=== PATIENT | male | born 1980 | race Caucasian/White ===

== ENCOUNTER 2020-01-16 20:04 | Emergency (ER) | payer BC, SELFPAY ==
[2020-01-16 20:35] VITALS: BP 115/87; PULSE 77; RESP 16; TEMP 36.7; O2SAT 98; BMI 34.9
[2020-01-16 20:50] VITALS: BP 115/87; PULSE 77; RESP 16; TEMP 36.7; O2SAT 98
--- NOTE | 2020-01-16 20:51 | HMH.EDUTC ---
[facility] [place] Disposition Clinical Impression: Exposure to COVID-19 virus Disposition: Home, Self-Care Condition on Discharge: Good Instructions: Preventing the Spread of Coronavirus Discharge Instructions Additional Instructions: You have been tested for COVID19. These test results should be available tomorrow. Please treat yourself as if you are positive and isolate yourself until test results received. Referrals: PCP,No [Primary Care Provider] - Time of Disposition: 20:55 Medical Decision Making - Shashank Inquiry Pt receiving controlled substance: No Vital Signs: 01/16/20 20:35 01/16/20 20:50 Temperature 98.1 F 98.1 F Temperature Source Oral Pulse Rate 77 Pulse Rate [Right Brachial] 77 Respiratory Rate 16 16 Blood Pressure 115/87 Blood Pressure [Right Arm] 115/87 Blood Pressure Mean [Right Arm] 96 Blood Pressure Source [Right Arm] Automatic Cuff Blood Pressure Position [Right Arm] Sitting 02 Sat by Pulse Oximetry 98 Oxygen Delivery Method Room Air Orders (Tests/Meds): ORDERS Category Date Time Status Coronavirus 19 Swab (OUTPT) Routine Lab 01/16/20 20:41 Ordered [facility] [place] HPI - General Stated complaint: Covid test Time Seen by Provider: 01/16/20 20:51 Mode of Arrival: Ambulatory Source of Information: Patient Limitations: No Limitations Description of Symptoms (Recalled from Triage Doc. by RN): PATIENT C/O SORE THROAT AND SINUS ISSUES; WAS EXPOSED TO A POSITIVE COVID AND IS REQUESTING A TEST HEENT Symptoms (Recalled from RN notes): Yes Resp Symptoms (Recalled from RN notes): No Skin Symptoms (Recalled from RN notes): No MS Symptoms (Recalled from RN notes): No Functional Status (Recalled from RN notes): WNL - History of Present Illness Provider Complaint: Patient has been exposed to COVID19. Has sinus congestion and scratchy throat Onset (ago): day(s) (1) Relieving factors: none Exacerbating factors: none Associated symptoms: denies other symptoms Treatments prior to arrival: none - Related Data Allergies Allergy/AdvReac Type Severity Reaction Status Date / Time No Known Allergies Allergy Verified 01/16/20 20:41 - Worker's Comp Is this a Worker's Comp case?: No [facility] History - Hepatitis A Screen Drug use history?: No High risk sexual behaviors?: No History of sexually transmitted infection?: No Currently employed?: No Childcare worker?: No Do you have indoor plumbing?: Yes Do you have electricity?: Yes Attestation statement:: This patient has been screened for Hepatitis A risk factors. I have reviewed the patient's past medical history: Yes - Social History Alcohol Intake: never Occupational Status: other ROS Obtained: Yes All systems reviewed & no additional complaints - Constitutional Constitutional: Denies body ache, Denies chills, Denies fatigue, Denies fever(s), Denies lethargy, Denies malaise - Eyes Eyes: Denies eye discharge - ENT Ears, Nose, Mouth, and Throat: Denies otalgia, Denies nasal congestion, Reports sore throat - Cardiovascular Cardiovascular: Denies chest pain - Respiratory Respiratory: No cough, No dyspnea - Gastrointestinal Gastrointestingal: Denies: loose stools, vomiting Physical Exam - General General appearance: alert, in no apparent distress - Head Head exam: atraumatic, normocephalic - Eye Eye exam: Present: PERRL - ENT ENT exam: Present: normal oropharynx, TM's normal bilaterally - Neck Neck exam: Present: normal inspection - Chest Chest inspection: Present: normal inspection - Respiratory Respiratory exam: Present: normal lung sounds bilaterally - Cardiovascular Cardiovascular exam: Present: regular rate, normal rhythm - Neurological Exam Neurological exam: Present: alert, oriented X3 - Psychiatric Psychiatric exam: Present: normal affect, normal mood - Skin Skin exam: Present: warm, dry
== END 2020-01-16 20:58 | disposition home or self-care (01) ==
PROVIDERS: Emergency Provider Physician Assistant
DX: Z20.828 Contact with and (suspected) exposure to other viral communicable diseases (principal)
CPT/HCPCS: 99201; U0003

== ENCOUNTER 2020-05-28 18:19 | Emergency (ER) | payer BC, SELFPAY ==
[2020-05-28 18:30] VITALS: BP 103/74; PULSE 112; RESP 20; TEMP 38.6; O2SAT 96; BMI 34.9
--- NOTE | 2020-05-28 18:45 | HMH.EDUTC ---
[facility] [place] Clinical Impression: Viral syndrome, Exposure to COVID-19 virus, Bronchitis Disposition: Home, Self-Care Condition on Discharge: Good Instructions: Preventing the Spread of Coronavirus Discharge Instructions Additional Instructions: Drink plenty of fluids. Take tylenol for pain or fever. Return if you begin to have difficulty breathing. Follow up with your regular doctor. GO TO THE ER FOR ANY WORSENING SYMPTOMS Prescriptions: Brompheniramine/Pseudoephed/Dm [Bromfed Dm Cough Syrup] 5 ml PO Q6HP PRN #240 syrup PRN Reason: Cough [facility]: [facility] Ondansetron [Zofran 4mg ODT] 4 mg PO Q8HP PRN #12 tab.rapdis PRN Reason: Nausea Transmission Status[facility] Azithromycin [Z-Trace 250mg Tab*] 250 mg PO UD DOSE PK #6 tab [facility] Referrals: PCP,No [Primary Care Provider] - Forms: Work/School Release Time of Disposition: 18:49 Medical Decision Making - Medical Records Medical records reviewed: No: I reviewed the patient's medical records. - Shashank Inquiry Pt receiving controlled substance: No Vital Signs: 05/28/20 18:30 05/28/20 18:59 Temperature 101.4 F H 98.9 F Temperature Source Oral Oral Pulse Rate 112 H Pulse Rate [Radial] 112 H Respiratory Rate 20 20 Blood Pressure 103/74 L Blood Pressure [Right Arm] 103/74 L Blood Pressure Mean [Right Arm] 83 Blood Pressure Source Automatic Cuff Blood Pressure Source [Right Arm] Automatic Cuff Blood Pressure Position Sitting Blood Pressure Position [Right Arm] Sitting 02 Sat by Pulse Oximetry 96 Oxygen Delivery Method Room Air Room Air - Lab Data Lab results reviewed: Yes: I reviewed the patient's lab results. Orders (Tests/Meds): ED MEDICATIONS Discontinued Medications Generic Name Dose Route Start Last Admin Trade Name Freq PRN Reason Stop Dose Admin Ibuprofen 800 mg 05/28/20 18:34 05/28/20 18:35 Ibuprofen 400 Mg Tablet PO 05/28/20 18:35 800 mg ONCE ONE Administration ORDERS Category Date Time Status Covid-19 Nasal PCR ([facility]) Routine Lab 05/28/20 18:30 [place] [facility] [place] - General Stated complaint: covid test,feverSOB,[place] Time Seen by Provider: 05/28/20 18:35 Mode of Arrival: Ambulatory Source of Information: Patient Limitations: No Limitations Description of Symptoms (Recalled from Triage Doc. by RN): cough, body aches, fever, chills and chest congestion since this morning. HEENT Symptoms (Recalled from RN notes): Yes Resp Symptoms (Recalled from RN notes): No Skin Symptoms (Recalled from RN notes): No MS Symptoms (Recalled from RN notes): No Functional Status (Recalled from RN notes): wnl - History of Present Illness Provider Complaint: He states that since this morning he has ran a fever, had body aches, cough, and diarrhea. 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 - Related Data Previous Rx's Medication Instructions Recorded Azithromycin [Z-Trace 250mg Tab*] 250 mg PO UD DOSE PK #6 tab 05/28/20 Brompheniramine/Pseudoephed/Dm 5 ml PO Q6HP PRN #240 syrup 05/28/20 [Bromfed Dm Cough Syrup] Ondansetron [Zofran 4mg ODT] 4 mg PO Q8HP PRN #12 tab.rapdis 05/28/20 Allergies Allergy/AdvReac Type Severity Reaction Status Date / Time No Known Allergies Allergy Verified 01/16/20 20:41 - Worker's Comp Is this a Worker's Comp case?: No [facility] History - Hepatitis A Screen Drug use history?: No High risk sexual behaviors?: No History of sexually transmitted infection?: No Currently employed?: No Childcare worker?: No Do you have indoor plumbing?: Yes Do you have electricity?: Yes Attestation statement:: This patient has been screened for Hepatitis A risk factors. I have reviewed the patient's past medical history: Yes - Social History Alcohol Intake: never Occupational Status: other ROS Obtain
[2020-05-28 18:59] VITALS: BP 103/74; PULSE 112; RESP 20; TEMP 37.2; O2SAT 96
[2020-05-28 20:21] LABS: UTC Influenza A Antigen Negative (Negative); UTC Strep Screen (Rapid) Negative (Negative)
[2020-05-28 20:22] LABS: UTC Influenza B Antigen Negative (Negative)
== END 2020-05-28 19:00 | disposition home or self-care (01) ==
PROVIDERS: Emergency Provider Nurse Practitioner Family
DX: Z20.828 Contact with and (suspected) exposure to other viral communicable diseases (principal); J20.9 Acute bronchitis, unspecified; B34.9 Viral infection, unspecified
CPT/HCPCS: 87804; 87880; 99202; U0003

== ENCOUNTER 2020-05-31 09:13 | Emergency (ER) | payer BC, SELFPAY ==
[2020-05-31] VITALS (7 sets, daily range): BP systolic 98–123; BP diastolic 64–81; PULSE 76–96; RESP 18–20; TEMP 36.6–37; O2SAT 94–100; BMI 34.9
--- NOTE | 2020-05-31 09:14 | ECG_ITS ---
APPROVED REPORT Exam: Resting ECG HR:89 bpm ECG Measurements Heart Rate 89 AXES UT 134 P 43 QRSd 92 QRS 0 QT 368 T 53 QTc 447 Conclusion Normal sinus rhythm Minimal voltage criteria for LVH, may be normal variant Borderline ECG Electronically signed by : Vinay Medina, 05/31/2020 19:09:37
--- NOTE | 2020-05-31 09:19 | CT_ITS ---
PROCEDURE: CT ANGIO CHEST CLINCIAL INDICATION: chest pain Chest pain, Covid19 positive/exposure COMPARISON: No exams were available for comparison TECHNIQUE: IV Contrast: 70ML Isovue 370 Axial images obtained with sagittal and coronal reformats. All CT scans at the facility use one or more dose reduction, viz: automated exposure control, ma/kV adjustment per patient size (including targeted exams where dose is matched to indication, i.e. head), or iterative reconstruction technique. FINDINGS: HEART AND MEDIASTINAL STRUCTURES: No evidence of pulmonary embolus. There is cardiomegaly. No evidence aortic aneurysm or dissection. LUNGS AND PLEURAL SPACES: There are numerous pulmonary nodular lesions in both upper and lower lobes. The largest nodule is in the right middle lobe measuring 2.7 x 2.3 cm. This is peripheral and may be due to a dense area of pneumonia. Atelectatic changes are present in the lower lobes and there are trace bilateral pleural effusions. There is no evidence of cavitation in these nodular lesions. BONY STRUCTURES: No acute bony abnormalities apparent. UPPER ABDOMEN: Mild splenomegaly at 14 cm ADDITIONAL FINDINGS: No other significant abnormalities. IMPRESSION: 1. There are numerous bilateral some pulmonary nodules in both upper and lower lobes. These could represent septic emboli. Neoplasm would be included in the differential diagnosis. 2. 2.7 cm masslike area of consolidation in the right middle lobe which may represent an area of pneumonia or pulmonary mass. 3. Bilateral lower lobe atelectasis with trace effusions 4. No evidence of pulmonary embolus. No evidence of aortic dissection. There is cardiomegaly Dictated by: Theodore Hawk MD 05/31/2020 10:26 Theodore Hawk MD in [place] 05/31/2020 10:26
[2020-05-31 09:28] LABS: Basophils % 0.2 % (0.1-2.0); Eosinophils % 0.3 % (0.1-12.0); Hematocrit 41.8 % (42.0-52.0); Hemoglobin 14.1 g/dL (14.1-18.0); Lymphocytes # 1.3 K/mm3 (0.7-4.5); Lymphocytes % 13.1 % (10-50); Mean Corpuscular HGB Conc 33.7 g/dL (31.8-35.4); Mean Corpuscular Hemoglobin 30.7 pg (27.0-31.2); Mean Platelet Volume 10.8 fl (7.4-10.4); Monocytes # 0.8 K/mm3 (0.1-1.0); Monocytes % 7.6 % (1.7-9.3); Neutrophils # 7.9 K/mm3 (1.8-7.8); Neutrophils % 78.9 % (37.0-80.0); Platelet Count 132 K/mm3 (142-424); Red Blood Count 4.59 M/mm3 (4.60-6.20); Red Cell Distribution Width 14.1 % (11.5-17.5)
[2020-05-31 09:36] LABS: Chloride 105 mmol/L (98-107); Sodium 136 mmol/L (136-145)
--- NOTE | 2020-05-31 09:37 | PC.NURSE ---
Pt family at bedside at this time.
[2020-05-31 09:38] LABS: Blood Urea Nitrogen 11 mg/dl (9-20); Creatinine Clearance Estimated 164 mL/min (50-200); Estimated Glomerular Filt Rate 75 ml/min (>60); GFR (African American) 91 ML/MIN (>60)
[2020-05-31 09:39] LABS: Calcium 9.2 mg/dl (8.4-10.2); Carbon Dioxide 23 mmol/L (22.0-30.0); Glucose 131 mg/dl (74-100)
--- NOTE | 2020-05-31 09:42 | HMH.EDCP ---
ED Disposition Clinical Impression: Pneumonitis, Elevated erythrocyte sedimentation rate, Elevated C-reactive protein (CRP), Exposure to COVID-19 virus Chest pain Qualifiers: Chest pain type: unspecified Qualified Code(s): R07.9 - Chest pain, unspecified Disposition: Home, Self-Care Condition on Discharge: Good Instructions: DI for Atypical Chest Pain Additional Instructions: please use meds and quarantine as requested and see pulmonary med and pcp for follow up Prescriptions: predniSONE [Prednisone 20mg Tab] 20 mg PO BID #10 tab [facility] Ketorolac Tromethamine [Toradol 10mg tablet] 10 mg PO Q6H 5 Days #20 tab [facility] Referrals: PCP,No [Primary Care Provider] - Georgiana Marie MD [Physician] - - Critical Care Critical Care Time: No Attestation: On , the high probability of a clinically significant, sudden or life threatening deterioration of the following system(s) required my full and direct attention, intervention and personal management. The time I documented below is in addition to time spent performing reported procedures but includes the following listed in this critical care notation. Medical Decision Making - Medical Records Medical records reviewed: Yes: I reviewed the patient's medical records. - Shashank Inquiry Pt receiving controlled substance: No Vital Signs: 05/31/20 09:14 05/31/20 09:28 05/31/20 10:00 Temperature 98.6 F Temperature Source Oral Pulse Rate [Radial] 95 H 96 H 87 Respiratory Rate 20 Blood Pressure [Right Arm] 100/64 L 98/67 L 123/81 Blood Pressure Mean [Right Arm] 76 77 95 Blood Pressure Source [Right Arm] Automatic Cuff Automatic Cuff Automatic Cuff Blood Pressure Position [Right Arm] Sitting Sitting Sitting 02 Sat by Pulse Oximetry 94 L 96 97 Oxygen Delivery Method Room Air Room Air Room Air 05/31/20 10:28 05/31/20 11:23 05/31/20 12:35 Temperature Temperature Source Pulse Rate [Radial] 89 76 85 Respiratory Rate Blood Pressure [Right Arm] 123/74 107/68 L 112/74 Blood Pressure Mean [Right Arm] 90 81 86 Blood Pressure Source [Right Arm] Automatic Cuff Automatic Cuff Blood Pressure Position [Right Arm] Sitting Sitting 02 Sat by Pulse Oximetry 100 98 95 Oxygen Delivery Method Room Air Room Air Room Air - Lab Data Lab results reviewed: Yes: I reviewed the patient's lab results. Lab Results 05/31/20 09:21: WBC 10.0, RBC 4.59 L, Hgb 14.1, Hct 41.8 L, MCV 91.0, MCH 30.7, MCHC 33.7, RDW 14.1, Plt Count 132 L, MPV 10.8 H, Neut % (Auto) 78.9, Lymph % (Auto) 13.1, Wells % (Auto) 7.6, Eos % (Auto) 0.3, Baso % (Auto) 0.2, Neut # (Auto) 7.9 H, Lymph # (Auto) 1.3, Wells # (Auto) 0.8, Eos # (Auto) 0.0, Baso # (Auto) 0.0 05/31/20 09:21: Sodium 136, Potassium 4.0, Chloride 105, Carbon Dioxide 23, Anion Gap 12.0, BUN 11, Creatinine 1.10, Estimated Creat Clear 164, Estimated GFR 75, Est GFR ( Amer) 91, Glucose 131 H, Calcium 9.2, Troponin I < 0.01 05/31/20 09:21: ESR 55 H 05/31/20 10:02: Total Bilirubin 0.6, Direct Bilirubin 0.1, Conjugated Bilirubin 0.0, Indirect Bilirubin 0.5, Unconjugated Bilirubin 0.5, AST 31, ALT 32, Alkaline Phosphatase 74, C-Reactive Protein 244.9 H, Total Protein 7.6, Albumin 4.0, Procalcitonin 0.416 Result diagrams: 05/31/20 09:21 05/31/20 09:21 Orders (Tests/Meds): ED MEDICATIONS Discontinued Medications Generic Name Dose Route Start Last Admin Trade Name Freq PRN Reason Stop Dose Admin Dexamethasone Sodium Phosphate 8 mg 05/31/20 12:10 05/31/20 12:18 Dexamethasone 4mg/Ml 1ml Vial IV 05/31/20 12:11 8 mg ONCE ONE Administration Iopamidol 70 ml 05/31/20 09:57 05/31/20 09:57 Iopamidol-370 (76%);100ml Bottle IV 05/31/20 09:58 70 ml ONCE ONE Administration Ketorolac Tromethamine 30 mg 05/31/20 12:10 05/31/20 12:18 Ketorolac 30mg/Ml Vial IV 05/31/20 12:11 30 mg ONCE ONE Administration Sod
[2020-05-31 09:52] LABS: Troponin I < 0.01 ng/ml (0.00-0.034)
--- NOTE | 2020-05-31 10:00 | PC.NURSE ---
Pt returned from rad.
--- NOTE | 2020-05-31 10:15 | PC.NURSE ---
Dr Winkler speaking with Dr Hawk
--- NOTE | 2020-05-31 10:16 | CA_ITS ---
APPROVED REPORT EXAM: Comprehensive 2D, Doppler, and color-flow Echocardiogram Clinical Trainer: Lesley Castillo CRT Ht: 6 ft 3 in Wt: 280lbs BSA: 2.53 BP: 98/67 mmHg Indications: Chest Pain, Shortness of Breath, exposed to covid 19 2D Dimensions LVOT 2.03 cm (M/F) 1.5-2.5 M-Mode Dimensions RVDd 2.64 cm (0.9-2.6) LA Diam 3.92 cm (1.9-4.0) LVDd 4.57 cm (3.5-5.7) Ao Diam 4.25 cm (2.0-3.7) LVDs 3.25 cm (3.5-5.7) IVSd 1.57 cm (0.6-1.1) PWd 1.14 cm (0.6-1.1) EF (Teich) 55.70% FS 28.90% EDV (Teich) 95.90 mL ESV (Teich) 42.50 mL LV Diastology E Decel Time 210.00 (160-240 msec) E/A Ratio 0.76 MED E' 6.80 (< 7 cm/sec) E'/MED E' Ratio 11.63 (>14) LAT E' 8.00 (<10 cm/sec) E/LAT E' Ratio 9.89 (>14) Aortic Valve AO Peak GR. 6.40 mmHg Mitral Valve MV A Velocity 103.00 (40-130 cm/s) E/A Ratio 0.76 MV Decel. Time 210.00 (160-240 ms) Tricuspid Valve TR P. Velocity 244.00 cm/s RAP Estimate 10.00 mmHg RVSP 33.80 mmHg Left Ventricle Left atrium is normal size, left ventricle is normal size, there is no concentric left ventricular hypertrophy, visually estimated ejection fraction 55% with no regional wall motion abnormality, diastolic parameters are inconclusive. Right Ventricle Right atrium and right ventricle are normal size and contractility. Aortic Valve Aortic valve is minimally thickened and fibrosed, there is no aortic stenosis or aortic insufficiency. Mitral Valve Mitral valve is grossly normal, there is trace mitral regurgitation. Tricuspid Valve Tricuspid valve grossly normal, there is trace tricuspid regurgitation. Pulmonic Valve Pulmonic valve is poorly visualized. Great Vessels Aortic root is normal size. Pericardium No significant pericardial effusion noted. Conclusion 1. Normal left ventricular size, preserved left ventricular systolic function, visually estimated ejection fraction 55% with no regional wall motion abnormality, diastolic parameters are inconclusive. 2. Trace mitral and tricuspid regurgitation. 3. No significant pericardial effusion noted. Electronically signed by : Reese Valles, 05/31/2020 13:10:03
--- NOTE | 2020-05-31 10:24 | PC.NURSE ---
Lab aware of new orders.
[2020-05-31 10:31] LABS: Alanine Aminotransferase 32 U/L (12-78); Alkaline Phosphatase 74 U/L (38-126); Aspartate Amino Transferase 31 U/L (17-59); Bilirubin,Direct 0.1 mg/dl (0.0-0.4); Bilirubin,Indirect 0.5 mg/dL (0.0-0.9); Bilirubin,Total 0.6 mg/dl (0.2-1.3); Bilirubin,Unconjugated 0.5 mg/dL (0.0-1.1); Total Protein,Serum 7.6 g/dl (6.3-8.2)
[2020-05-31 10:37] LABS: C-Reactive Protein 244.9 mg/L (0-4)
--- NOTE | 2020-05-31 10:50 | PC.NURSE ---
Echo lab at bedside
[2020-05-31 11:01] LABS: Procalcitonin 0.416 ng/mL (0.0-2.0)
[2020-05-31 11:24] LABS: Erythrocyte Sedimentation Rate 55 mm/hr (0-15)
== END 2020-05-31 13:06 | disposition home or self-care (01) ==
PROVIDERS: Emergency Provider Emergency Medicine
DX: J18.9 Pneumonia, unspecified organism (principal); R70.0 Elevated erythrocyte sedimentation rate; R79.82 Elevated C-reactive protein (CRP); Z20.828 Contact with and (suspected) exposure to other viral communicable diseases; F17.210 Nicotine dependence, cigarettes, uncomplicated
CPT/HCPCS: 71275; 80048; 80076; 84145; 84484; 85025; 85651; 86140; 93005; 93306; 96374; 96375; 99283; Q9967

== ENCOUNTER 2020-06-02 12:17 | Emergency (ER) | payer BC, SELFPAY ==
[2020-06-02 12:28] VITALS: BP 125/76; PULSE 83; RESP 12; TEMP 36.6; O2SAT 96; BMI 34.9
--- NOTE | 2020-06-02 12:46 | HMH.EDUTC ---
[facility] [place] Clinical Impression: Exposure to COVID-19 virus Disposition: Home, Self-Care Condition on Discharge: Good Instructions: Preventing the Spread of Coronavirus Discharge Instructions, DI for COVID-19 (Suspected or Confirmed ) Additional Instructions: Drink plenty of fluids. Take tylenol for pain or fever. Return if you begin to have difficulty breathing. Follow up with your regular doctor. GO TO THE ER FOR ANY WORSENING SYMPTOMS Referrals: PCP,No [Primary Care Provider] - Time of Disposition: 12:54 Medical Decision Making - Medical Records Medical records reviewed: No: I reviewed the patient's medical records. - Shashank Inquiry Pt receiving controlled substance: No Vital Signs: 06/02/20 12:28 Temperature 97.9 F Temperature Source Oral Pulse Rate [Radial] 83 Respiratory Rate 12 Blood Pressure [Right Arm] 125/76 Blood Pressure Mean [Right Arm] 92 Blood Pressure Source [Right Arm] Automatic Cuff Blood Pressure Position [Right Arm] Sitting 02 Sat by Pulse Oximetry 96 Oxygen Delivery Method Room Air Orders (Tests/Meds): ORDERS Category Date Time Status Covid-19 Nasal PCR [facility] Routine Lab 06/02/20 12:22 Ordered [facility] [place] - General Stated complaint: COVID EXPOSURE Time Seen by Provider: 06/02/20 12:46 Mode of Arrival: Ambulatory Source of Information: Patient Limitations: No Limitations Description of Symptoms (Recalled from Triage Doc. by RN): covid test HEENT Symptoms (Recalled from RN notes): No Resp Symptoms (Recalled from RN notes): No Skin Symptoms (Recalled from RN notes): No MS Symptoms (Recalled from RN notes): No Functional Status (Recalled from RN notes): wnl - History of Present Illness Provider Complaint: He states that his was positive for covid earlier this week. He denies any symptoms, but he needs a negative test to be allowed to go back to work. - Related Data Previous Rx's Medication Instructions Recorded Azithromycin [Z-Trace 250mg Tab*] 250 mg PO UD DOSE PK #6 tab 05/28/20 Brompheniramine/Pseudoephed/Dm 5 ml PO Q6HP PRN #240 syrup 05/28/20 [Bromfed Dm Cough Syrup] Ondansetron [Zofran 4mg ODT] 4 mg PO Q8HP PRN #12 tab.rapdis 05/28/20 Ketorolac Tromethamine [Toradol 10 mg PO Q6H 5 Days #20 tab 05/31/20 10mg tablet] predniSONE [Prednisone 20mg 20 mg PO BID #10 tab 05/31/20 Tab] Allergies Allergy/AdvReac Type Severity Reaction Status Date / Time No Known Allergies Allergy Verified 01/16/20 20:41 - Worker's Comp Is this a Worker's Comp case?: No [facility] History - Hepatitis A Screen Drug use history?: No High risk sexual behaviors?: No History of sexually transmitted infection?: No Currently employed?: No Childcare worker?: No Do you have indoor plumbing?: Yes Do you have electricity?: Yes Attestation statement:: This patient has been screened for Hepatitis A risk factors. I have reviewed the patient's past medical history: Yes - Social History Alcohol Intake: never Occupational Status: employed Housing: house ROS Obtained: Yes All systems reviewed & no additional complaints - Constitutional Constitutional: Reports system reviewed and no additional complaints, except as docu - Eyes Eyes: Reports system reviewed and no additional complaints, except as docu - ENT Ears, Nose, Mouth, and Throat: Reports system reviewed and no additional complaints, except as docu - Cardiovascular Cardiovascular: Reports system reviewed and no additional complaints, except as docu - Respiratory Respiratory: Yes system reviewed and no additional complaints, except as docu - Gastrointestinal Gastrointestingal: Reports: system reviewed and no additional complaints, except as docu Physical Exam - General General appearance: alert, in no apparent distress - Head Head exam: atraumatic, normocephalic, normal inspection - Eye Eye exam: Present: normal appearance, PERRL, EOMI - ENT ENT exam
[2020-06-02 13:01] VITALS: BP 125/76; PULSE 83; RESP 12; TEMP 36.6; O2SAT 96
[2020-06-03 11:46] LABS: Covid-19 Nasal PCR Sendout UK Not Detected
== END 2020-06-02 13:02 | disposition home or self-care (01) ==
PROVIDERS: Emergency Provider Nurse Practitioner Family
DX: Z20.828 Contact with and (suspected) exposure to other viral communicable diseases (principal)
CPT/HCPCS: 99201; U0003

== ENCOUNTER 2020-06-12 10:25 | Emergency (ER) | payer BC, SELFPAY ==
[2020-06-12 10:25] VITALS: BP 119/73; PULSE 109; RESP 20; TEMP 36.8; O2SAT 98; BMI 34.9
[2020-06-12 10:38] VITALS: BP 119/73; PULSE 109; RESP 20; TEMP 36.8; O2SAT 98
--- NOTE | 2020-06-12 10:38 | HMH.EDUTC ---
[facility] [place] Clinical Impression: Encounter for laboratory testing for COVID-19 virus Disposition: Home, Self-Care Condition on Discharge: Good Instructions: DI for COVID-19 (Suspected or Confirmed ), COVID-19 Viral Test, COVID-19: Testing and Tracing, Preventing the Spread of Coronavirus Discharge Instructions Additional Instructions: *Monitor Temp, Over the counter Motrin or Tylenol as directed/as needed Tylenol every 4 hours and Motrin every 6 hours (as long as your family doctor has told you that you can take it) for fever or pain. and straight to ER if unable to lower temp less than 101.0 after medication given Follow up IMMEDIATELY for new or worsening symptoms or no Noticeable improvement over the next 48-72 hours. 911 for difficulty breathing or swallowing You were tested for today for COVID19 your test result should be back in the next 24-48 hours, you may call to the [facility] to see if your test results are back in the next 48 hours [phone] [facility] hours are 9am-9pm You was given a handout with instructions for Self Quarantine and Self isolation for while you wait on test results and what to do if they are positive If you are positive the Health Dept will be contacting you also Referrals: PCP,No [Primary Care Provider] - As needed Forms: Work/School Release Time of Disposition: 10:41 Medical Decision Making - Shashank Inquiry Pt receiving controlled substance: No Shashank was queried for this patient: No Vital Signs: 06/12/20 10:25 Temperature 98.2 F Temperature Source Oral Pulse Rate [Right Brachial] 109 H Respiratory Rate 20 Blood Pressure [Right Arm] 119/73 Blood Pressure Mean [Right Arm] 88 Blood Pressure Source [Right Arm] Automatic Cuff Blood Pressure Position [Right Arm] Sitting 02 Sat by Pulse Oximetry 98 Oxygen Delivery Method Room Air Orders (Tests/Meds): ORDERS Category Date Time Status Covid-19 Nasal PCR Sendout [facility] Stat Lab 06/12/20 10:29 Ordered [facility] [place] - General Stated complaint: wants covid test for work Time Seen by Provider: 06/12/20 10:38 Mode of Arrival: Ambulatory Source of Information: Patient Limitations: No Limitations Description of Symptoms (Recalled from Triage Doc. by RN): PATIENT REQUESTING COVID TEST TO RETURN TO WORK; DENIES SYMPTOMS OR EXPOSURE HEENT Symptoms (Recalled from RN notes): No Resp Symptoms (Recalled from RN notes): No Skin Symptoms (Recalled from RN notes): No MS Symptoms (Recalled from RN notes): No Functional Status (Recalled from RN notes): WNL - History of Present Illness Provider Complaint: Patient state that his girlfriend had a false positive COVID test and has tested three times since and was negative State that his work will not let him return to work until he had several negative test States that he came in today to get tested again for COVID Denies any symptoms and denies any known exposure - Related Data Previous Rx's Medication Instructions Recorded Azithromycin [Z-Trace 250mg Tab*] 250 mg PO UD DOSE PK #6 tab 05/28/20 Brompheniramine/Pseudoephed/Dm 5 ml PO Q6HP PRN #240 syrup 05/28/20 [Bromfed Dm Cough Syrup] Ondansetron [Zofran 4mg ODT] 4 mg PO Q8HP PRN #12 tab.rapdis 05/28/20 Ketorolac Tromethamine [Toradol 10 mg PO Q6H 5 Days #20 tab 05/31/20 10mg tablet] predniSONE [Prednisone 20mg 20 mg PO BID #10 tab 05/31/20 Tab] Allergies Allergy/AdvReac Type Severity Reaction Status Date / Time No Known Allergies Allergy Verified 01/16/20 20:41 - Worker's Comp Is this a Worker's Comp case?: No [facility] History - Hepatitis A Screen Drug use history?: No High risk sexual behaviors?: No History of sexually transmitted infection?: No Currently employed?: No Childcare worker?: No Do you have indoor plumbing?: Yes Do you have electricity?: Yes Attestation statement:: This patient has been screened for Hepatitis A risk factors. I have reviewed the patient's past medical history: Yes - Soc
[2020-06-13 11:11] LABS: Covid-19 Nasal PCR Sendout P&C Negative
== END 2020-06-12 10:40 | disposition home or self-care (01) ==
PROVIDERS: Emergency Provider Nurse Practitioner
DX: Z20.828 Contact with and (suspected) exposure to other viral communicable diseases (principal)
CPT/HCPCS: 99201; U0004

== ENCOUNTER → 2021-10-09 17:04 | Outpatient (CLI) | payer BC, SELFPAY | PROVIDERS: PCP Internal Medicine Adolescent Medicine; Visit Provider Internal Medicine Adolescent Medicine | DX: G47.33 Obstructive sleep apnea (adult) (pediatric) (principal); I49.9 Cardiac arrhythmia, unspecified; G47.10 Hypersomnia, unspecified; R06.83 Snoring | CPT/HCPCS: 95806 ==

== ENCOUNTER → 2022-02-20 07:55 | Outpatient (CLI) | payer BC, SELFPAY ==
[2022-02-20 08:40] VITALS: PULSE 109; PULSE 111
--- NOTE | 2022-02-20 09:04 | CT_ITS ---
FINAL REPORT TECHNIQUE: Postcontrast axial images of the chest were performed in a CTA protocol. This study was performed with techniques to keep radiation doses as low as reasonably achievable, (ALARA). Individualized dose reduction technique using automated exposure control or adjustment of mA and/or kV according to the patient's size were employed. CLINICAL HISTORY: AVM and Nodule COMPARISON: 05/31/2020 FINDINGS: The heart is normal in size. No adenopathy is identified. No pleural or pericardial effusion is identified. The thoracic aorta is normal in caliber with no focal aneurysm or dissection identified. There is no filling defect to suggest pulmonary embolism. There is been interval resolution of pulmonary nodules and consolidation. Mild scarring is seen bilaterally. There is a calcified granuloma in the left lower lobe. There is no new mass or nodule. The images of the upper abdomen are unremarkable. IMPRESSION: No evidence for PE on this exam. No pulmonary mass or nodule. Reviewed, Interpreted and Dictated by Jeet Adams III, MD Transcribed by Shauna Burgess Authenticated and [facility]
== END ==
LOC: RT 07:57
PROVIDERS: PCP Internal Medicine Adolescent Medicine; Visit Provider Internal Medicine Pulmonary Disease
DX: R06.09 Other forms of dyspnea (principal); I28.1 Aneurysm of pulmonary artery; R91.1 Solitary pulmonary nodule
CPT/HCPCS: 71275; 94060; 94640; 94727; 94729; Q9967